=== PATIENT | female | born 1955 | race Caucasian/White ===

== ENCOUNTER → 2018-01-23 11:15 | Outpatient (CLI) | payer OTHER, SELFPAY ==
--- NOTE | 2018-01-23 | DI.MG.S_ITS ---
BILATERAL DIGITAL SCREENING MAMMOGRAM 3D/2D WITH CAD: 01/23/2018 CLINICAL: Routine screening. Comparison is made to exams dated: 01/19/2017 mammogram, 10/14/2014 mammogram, and 09/18/2012 mammogram - [facility]. The tissue of both breasts is predominantly fatty. Current study was also evaluated with a Computer Aided Detection (CAD) system. No significant masses, calcifications, or other findings are seen in either breast. There has been no significant interval change. IMPRESSION: NEGATIVE There is no mammographic evidence of malignancy. A 1 year screening mammogram is recommended. This exam was interpreted at Station ID: [id number]. NOTE: For mammograms, a report in lay terms will be sent to the patient. Approximately 15% of breast malignancies will not be visualized mammographically. In the management of a palpable breast mass, a negative mammogram must not discourage biopsy of a clinically suspicious lesion. Electronically Signed By: Mt sr/mali:01/23/2018 17:22:16 letter sent: Normal Exam ACR BI-RADS Category 1: Negative [id number]
== END ==
PROVIDERS: PCP Internal Medicine; Visit Provider Internal Medicine
DX: Z12.31 Encounter for screening mammogram for malignant neoplasm of breast (principal)
CPT/HCPCS: 77063; 77067

== ENCOUNTER 2018-01-23 12:45 | Outpatient (RCR) | payer OTHER, SELFPAY ==
--- NOTE | 2017-12-15 17:01 | PT.OIE ---
Current Diagnoses Uterovaginal prolapse, unspecified (12/15/17) Past Surgical History Status post breast reduction Status post ovarian cystectomy Status post tubal ligation Provider Visit Care Team Role Provider Type Narayan Jordan MD Primary Care Provider Physician Specialty: Internal Medicine Address: [address] [place] [address], [id number] Email: Lukasz Leon MD Attending Provider Non-Staff Specialty: DOG BATHER Address: [address] [place] [address], [id number] Email: Physical Therapy Initial Evaluation PT-OP-A Visit Information Start: 12/15/17 09:17 Freq: Status: Active Protocol: Document 12/15/17 13:45 AMB (Rec: 12/15/17 16:47 AMB [email or web address]) Out-Patient Physical Therapy Visit Information Visit Information Visit Type Initial Evaluation Visit Start Time 13:45 Visit Stop Time 14:45 Total Visit Minutes 60 Visit Number 1 Evaluation Information Evaluation Date 12/15/17 PT-OP-B Current Condition Start: 12/15/17 09:17 Freq: Status: Active Protocol: Document 12/15/17 13:45 AMB (Rec: 12/15/17 14:14 AMB [id number]) Current Condition History of Current Condition Onset Date 2 years ago Current Complaints Feeling of falling out increases with standing, lifting, in afternoon History of Current Condition Tubal ligation and endometriosis history. RA. 2 vaginal deliveries, with episiotomies. First felt a bulge in 2016. Not currently sexually active. No bleeding or infection noted. Has not tried a pessary, but uncomfortable with the whole idea of one. Prior Functional Status Baseline Function- ADL's Independent Baseline Function- Mobility Independent Baseline Function- Other Feeling of falling out, worse with activity, can get it back in by lying down. Current Functional Impairments (Reported) Functional Limitations- Other Pt with a feeling of heaviness with lifting and walking. Personal Factors Other Personal Factors That May Effect lives on [place] Therapy/Recovery PT-OP-C Subjective Start: 12/15/17 09:17 Freq: Status: Active Protocol: Document 12/15/17 13:45 AMB (Rec: 12/15/17 16:47 AMB [email or web address]) OP-PT Subjective Patient Comments Patient Comments Pt has been noticing prolapse for 2 years, feels uncomfortable, would like to avoid surgery if possible, but also willing to get surgery if she absolutely needs it. Patient Questionnaires Pelvic Pain and Urgency/Frequency Patient Symptom Scale Pelvic Pain Score 7 PT-OP-I Pelvic Floor Start: 12/15/17 09:17 Freq: Status: Active Protocol: Document 12/15/17 13:45 AMB (Rec: 12/15/17 16:41 AMB [email or web address]) Pelvic Floor Assessment Urine Urinary Symptoms Prolapse Falling Out Feeling/Heavy Other Leakage Causes 1 leak per month, not her main concern Bowel Other Bowel Symptoms 1-2 bowel movements per day denies pushing or bearing down . Does feel like needing to have a bowel movement increases the prolapsed feeling. Prolapse Uterine Prolapse Grade 2 Prolapse Comments Visible anterior wall descent baseline, increases with bearing down. Contraction Ability Voluntary Contraction Moderate Voluntary Relaxation Moderate Muscle Endurance (Seconds) 7 Number of Quick Contractions In 10 4 Seconds Comments Pelvic Floor Comments Overall 2/5 strength PT-OP-Q Treatments Start: 12/15/17 09:17 Freq: Status: Active Protocol: Document 12/15/17 13:45 AMB (Rec: 12/15/17 16:50 AMB [email or web address]) Neuro Re-Education Treatment Other Activities 2 Details long holds Reps/Duration 5 sec x5 Comments education in how to make exercise easier or harder with gravity, gravity assisted exercise 1 Details quick flicks Reps/Duration 10 PT-OP-T Assessment and Plan Start: 12/15/17 09:17 Freq: Status: Active Protocol: Document 12/15/17 13:45 AMB (Rec: 12/15/17 17:01 AMB [email or web address]) Physical Therapy Assessment Rehab Potential Rehabilitation Potential Good Evaluation Complexity Number of Personal Factors/Comorbidities 1-2 Number of Body Systems Impaired 1-2 Clinical Presentation at Evaluation Stable Impairments Impairments Strength Goals 2 Impairment Endurance Short Term Goal (STG) The patient will walk for 30 minutes without an increased feeling of falling out. STG Duration 5 weeks 1 Impairment Weakness Short Term Goal (STG) The patient will hold a pelvic floor contraction for 10 seconds in standing. STG Duration 5 weeks [employer] Farmworker Goal (LTG) The patient will contract her pelvic floor so that she does not feel her prolapse when lifting a bag of groceries from the floor to countertop height. LTG Duration 10 weeks Assessment Summary Assessment The patient presents with prolapse that is uncomfortable to her and limits her ability to be as active as she would like. She limits her walking and lifting, and has changed her diet to avoid large bowel movements which put pressure on her prolapse. She had 2/5 strength with good squeeze but needs to improver the lift of her levator. She will benefit from PT to improve her ability to use her pelvic floor muscles functionally to help brace her prolapse. Physical Therapy Plan Frequency and Duration Frequency of Treatment Every Other Week Duration of Treatment 10 weeks Plan of Care Start Date 12/15/17 Plan of Care End Date 02/23/18 Therapeutic Interventions Therapeutic Interventions Home Exercise Program Manual Therapy Neuromuscular Re-education Self-Care/Home Management Therapeutic Activities Therapeutic Exercises Modalities Biofeedback Electric Stimulation Next Visit Focus/Plan Next Note Type Treatment Note
--- NOTE | 2017-12-15 17:02 | PT.OPPOC ---
Current Diagnoses Uterovaginal prolapse, unspecified (12/15/17) Provider Visit Care Team Role Provider Type Narayan Jordan MD Primary Care Provider Physician Specialty: Internal Medicine Address: [address] [place] [address], [id number] Email: Lukasz Leon MD Attending Provider Non-Staff Specialty: PLANT PACKER Address: [address], [place], [address] Email: Plan Of Care PT-OP-T Assessment and Plan Start: 12/15/17 09:17 Freq: Status: Active Protocol: Document 12/15/17 13:45 AMB (Rec: 12/15/17 17:01 AMB [email or web address]) Physical Therapy Assessment Rehab Potential Rehabilitation Potential Good Evaluation Complexity Number of Personal Factors/Comorbidities 1-2 Number of Body Systems Impaired 1-2 Clinical Presentation at Evaluation Stable Impairments Impairments Strength Goals 2 Impairment Endurance Short Term Goal (STG) The patient will walk for 30 minutes without an increased feeling of falling out. STG Duration 5 weeks 1 Impairment Weakness Short Term Goal (STG) The patient will hold a pelvic floor contraction for 10 seconds in standing. STG Duration 5 weeks Skilled Nursing Goal (LTG) The patient will contract her pelvic floor so that she does not feel her prolapse when lifting a bag of groceries from the floor to countertop height. LTG Duration 10 weeks Assessment Summary Assessment The patient presents with prolapse that is uncomfortable to her and limits her ability to be as active as she would like. She limits her walking and lifting, and has changed her diet to avoid large bowel movements which put pressure on her prolapse. She had 2/5 strength with good squeeze but needs to improver the lift of her levator. She will benefit from PT to improve her ability to use her pelvic floor muscles functionally to help brace her prolapse. Physical Therapy Plan Frequency and Duration Frequency of Treatment Every Other Week Duration of Treatment 10 weeks Plan of Care Start Date 12/15/17 Plan of Care End Date 02/23/18 Therapeutic Interventions Therapeutic Interventions Home Exercise Program Manual Therapy Neuromuscular Re-education Self-Care/Home Management Therapeutic Activities Therapeutic Exercises Modalities Biofeedback Electric Stimulation Next Visit Focus/Plan Next Note Type Treatment Note Plan of Care Dates Plan of Care Start Date 12/15/17 Plan of Care End Date 02/23/18 Please Sign and Return: I have reviewed this Plan of Care and certify that the skilled therapy services above are required to meet the patient?s needs. Physician Signature Date Printed Name and Credentials Clinical Instructor Signature Printed Name and Credentials
--- NOTE | 2018-01-23 16:20 | PT.OTN ---
Current Diagnoses Uterovaginal prolapse, unspecified (01/23/18) Physical Therapy Treatment Note PT-OP-A Visit Information Start: 12/15/17 09:17 Freq: Status: Active Protocol: Document 01/23/18 12:45 AMB (Rec: 01/23/18 12:58 AMB [id number]) Out-Patient Physical Therapy Visit Information Visit Information Visit Type Treatment Note Visit Start Time 12:45 Visit Stop Time 13:30 Total Visit Minutes 45 Visit Number 2 PT-OP-B Current Condition Start: 12/15/17 09:17 Freq: Status: Active Protocol: Document 12/15/17 13:45 AMB (Rec: 12/15/17 14:14 AMB [id number]) Current Condition History of Current Condition Onset Date 2 years ago Current Complaints Feeling of falling out increases with standing, lifting, in afternoon History of Current Condition Tubal ligation and endometriosis history. RA. 2 vaginal deliveries, with episiotomies. First felt a bulge in 2015. Not currently sexually active. No bleeding or infection noted. Has not tried a pessary, but uncomfortable with the whole idea of one. Prior Functional Status Baseline Function- ADL's Independent Baseline Function- Mobility Independent Baseline Function- Other Feeling of falling out, worse with activity, can get it back in by lying down. Current Functional Impairments (Reported) Functional Limitations- Other Pt with a feeling of heaviness with lifting and walking. Personal Factors Other Personal Factors That May Effect lives on [facility] Therapy/Recovery PT-OP-C Subjective Start: 12/15/17 09:17 Freq: Status: Active Protocol: Document 01/23/18 12:45 AMB (Rec: 01/23/18 16:18 AMB [email or web address]) OP-PT Subjective Patient Comments Patient Comments The patient reports she is doing her exercises. She is trying to lift her pelvic floor with functional movements (sit to stand) but that is hard. She is able to get the prolapse back in by sitting or lying down, but when she is tired her symptoms are worse. PT-OP-I Pelvic Floor Start: 12/15/17 09:17 Freq: Status: Active Protocol: Document 12/15/17 13:45 AMB (Rec: 12/15/17 16:41 AMB [email or web address]) Pelvic Floor Assessment Urine Urinary Symptoms Prolapse Falling Out Feeling/Heavy Other Leakage Causes 1 leak per month, not her main concern Bowel Other Bowel Symptoms 1-2 bowel movements per day denies pushing or bearing down . Does feel like needing to have a bowel movement increases the prolapsed feeling. Prolapse Uterine Prolapse Grade 2 Prolapse Comments Visible anterior wall descent baseline, increases with bearing down. Contraction Ability Voluntary Contraction Moderate Voluntary Relaxation Moderate Muscle Endurance (Seconds) 7 Number of Quick Contractions In 10 4 Seconds Comments Pelvic Floor Comments Overall 2/5 strength PT-OP-J Posture/Palpation/Skin Start: 12/15/17 09:17 Freq: Status: Active Protocol: Document 01/23/18 12:45 AMB (Rec: 01/23/18 15:43 AMB [email or web address]) Palpation Assessment Location One Palpation Location Abdomen Palpation Details Scar present at distal umbilicus and seperate scar superior to pubis. Both very sensitive with adhesions even though they have been present for decades. Pt feels queezy with with palpation of abdomen. PT-OP-Q Treatments Start: 12/15/17 09:17 Freq: Status: Active Protocol: Document 01/23/18 12:45 AMB (Rec: 01/23/18 16:18 AMB [email or web address]) Therapeutic Exercises Supine Exercises 2 Supine Exercise Name pelvic floor long holds Comments 5-10 seconds 1 Supine Exercise Name pelvic floor quick flicks Comments hooklying Manual Therapy Treatment Soft Tissue Mobilization 1 Body Location Abomen Mobilization Type Cross-Friction Myofascial Release Intensity/Depth Moderate Body Position Supine Comments Scar massage, instructed pt in as well as desensitization training, given her emotional response to scar work. PT-OP-T Assessment and Plan Start: 12/15/17 09:17 Freq: Status: Active Protocol: Document 01/23/18 12:45 AMB (Rec: 01/23/18 16:18 AMB [email or web address]) Physical Therapy Assessment Assessment Summary Assessment Tried to use biofeedback, but software was not working. Patient was very sensitive over scar tissue and advised her in desensititation, the role of the abdomen in her treatment. The patient was asked to come in to PT next month, but due to living on the [facility] is hesitant to come in frequently. She may be interested in a hysterectomy, but needs to talk to her doctor. Physical Therapy Plan Next Visit Focus/Plan Next Note Type Treatment Note Next Visit Plan Trial biofeedback, reassess abdominal adhesions, progress as able roll ins/outs.
--- NOTE | 2018-03-30 13:48 | PT.OPDS ---
Current Diagnoses Uterovaginal prolapse, unspecified (01/23/18) Provider Visit Care Team Role Provider Type Narayan Jordan MD Primary Care Provider Physician Specialty: Internal Medicine Address: [address] [place] [address], [address] Email: Lukasz Leon MD Attending Provider Non-Staff Specialty: VALVE LAPPER Address: [address] [facility], [place], [address] Email: Visit Number Visit Number 2 Discharge Summary PT-OP-B Current Condition Start: 12/15/17 09:17 Freq: Status: Active Protocol: Document 12/15/17 13:45 AMB (Rec: 12/15/17 14:14 AMB [id number]) Current Condition History of Current Condition Onset Date 2 years ago Current Complaints Feeling of falling out increases with standing, lifting, in afternoon History of Current Condition Tubal ligation and endometriosis history. RA. 2 vaginal deliveries, with episiotomies. First felt a bulge in 2016. Not currently sexually active. No bleeding or infection noted. Has not tried a pessary, but uncomfortable with the whole idea of one. Prior Functional Status Baseline Function- ADL's Independent Baseline Function- Mobility Independent Baseline Function- Other Feeling of falling out, worse with activity, can get it back in by lying down. Current Functional Impairments (Reported) Functional Limitations- Other Pt with a feeling of heaviness with lifting and walking. Personal Factors Other Personal Factors That May Effect lives on [place] Therapy/Recovery PT-OP-C Subjective Start: 12/15/17 09:17 Freq: Status: Active Protocol: Document 01/23/18 12:45 AMB (Rec: 01/23/18 16:18 AMB [email or web address]) OP-PT Subjective Patient Comments Patient Comments The patient reports she is doing her exercises. She is trying to lift her pelvic floor with functional movements (sit to stand) but that is hard. She is able to get the prolapse back in by sitting or lying down, but when she is tired her symptoms are worse. PT-OP-I Pelvic Floor Start: 12/15/17 09:17 Freq: Status: Active Protocol: Document 12/15/17 13:45 AMB (Rec: 12/15/17 16:41 AMB [email or web address]) Pelvic Floor Assessment Urine Urinary Symptoms Prolapse Falling Out Feeling/Heavy Other Leakage Causes 1 leak per month, not her main concern Bowel Other Bowel Symptoms 1-2 bowel movements per day denies pushing or bearing down . Does feel like needing to have a bowel movement increases the prolapsed feeling. Prolapse Uterine Prolapse Grade 2 Prolapse Comments Visible anterior wall descent baseline, increases with bearing down. Contraction Ability Voluntary Contraction Moderate Voluntary Relaxation Moderate Muscle Endurance (Seconds) 7 Number of Quick Contractions In 10 4 Seconds Comments Pelvic Floor Comments Overall 2/5 strength PT-OP-J Posture/Palpation/Skin Start: 12/15/17 09:17 Freq: Status: Active Protocol: Document 01/23/18 12:45 AMB (Rec: 01/23/18 15:43 AMB [email or web address]) Palpation Assessment Location One Palpation Location Abdomen Palpation Details Scar present at distal umbilicus and seperate scar superior to pubis. Both very sensitive with adhesions even though they have been present for decades. Pt feels queezy with with palpation of abdomen. PT-OP-T Assessment and Plan Start: 12/15/17 09:17 Freq: Status: Active Protocol: Document 03/30/18 13:46 AMB (Rec: 03/30/18 13:48 AMB [email or web address]) Physical Therapy Plan Discharge Physical Therapy Discharge Comments The patient was seen for 2 visits of PT. She would benefit from more PT, but she lives in [facility] and she finds it difficult to travel here. Given that she was only seen for 2 visits and has not returned follow up calls to schedule, she is now discharged. She would need a new referral to continue with PT at this time.
== END 2018-04-05 15:23 ==
LOC: PHYS 12:45
PROVIDERS: PCP Internal Medicine; Visit Provider Obstetrics & Gynecology
DX: N81.4 Uterovaginal prolapse, unspecified (principal)
CPT/HCPCS: 97110; 97112; 97140; 97161

== ENCOUNTER → 2019-03-26 16:46 | Outpatient (CLI) | payer BC, SELFPAY ==
--- NOTE | 2019-03-26 16:52 | DI.MG.S_ITS ---
BILATERAL DIGITAL SCREENING MAMMOGRAM 3D/2D WITH CAD: 03/26/2019 CLINICAL: Routine screening. Comparison is made to exams dated: 01/23/2018 mammogram, 01/19/2017 mammogram, and 10/14/2014 mammogram - [facility]. There are scattered fibroglandular elements in both breasts. Current study was also evaluated with a Computer Aided Detection (CAD) system. There is an irregular asymmetry in the left breast posterior depth medial region seen on the craniocaudal view only. There is possible distortion associated with the asymmetry. No other significant masses, calcifications, or other findings are seen in either breast. IMPRESSION: INCOMPLETE: NEEDS ADDITIONAL IMAGING EVALUATION The irregular asymmetry in the left breast is indeterminate. Additional views with possible ultrasound are recommended. This exam was interpreted at Station ID: [id number]. NOTE: For mammograms, a report in lay terms will be sent to the patient. Approximately 15% of breast malignancies will not be visualized mammographically. In the management of a palpable breast mass, a negative mammogram must not discourage biopsy of a clinically suspicious lesion. Electronically Signed By: Patricio Brand M.D. ecl/:03/26/2019 17:42:08 letter sent: Additional Imaging Needed ACR BI-RADS Category 0: Incomplete 3340F
== END ==
PROVIDERS: PCP Internal Medicine; Visit Provider Internal Medicine
DX: Z12.31 Encounter for screening mammogram for malignant neoplasm of breast (principal)
CPT/HCPCS: 77063; 77067

== ENCOUNTER → 2019-04-18 12:53 | Outpatient (CLI) | payer BC, SELFPAY ==
--- NOTE | 2019-04-18 | DI.MG.S_ITS ---
UNILATERAL LEFT DIGITAL DIAGNOSTIC MAMMOGRAM 3D/2D WITH ADDITIONAL VIEWS: 04/18/2019 CLINICAL: Additional evaluation requested from prior study. Patient has a history of bilateral breast reductions. Comparison is made to exams dated: 03/26/2019 mammogram, 01/23/2018 mammogram, and 01/19/2017 mammogram - [facility]. There are scattered fibroglandular elements in left breast. Patient has a history of bilateral breast reductions. The scarring of the left breast has been labeled with linear scar markers. The previously identified irregular asymmetry in the left breast posterior depth medial region seen on the craniocaudal view only on comparison screening mammograms of 03/26/19 is less prominent on additional views. The less prominent asymmetry appears to correlate with scarring of the inferior left breast as identified by the linear scar markers. IMPRESSION: INCOMPLETE: NEEDS ADDITIONAL IMAGING EVALUATION Previously identified irregular asymmetry in the left breast posterior depth medial region seen on the craniocaudal view only on comparison screening mammograms of 03/26/19 is less prominent on additional views, and appears to correlate with inferior left breast scarring from prior breast reduction. A targeted ultrasound is recommended for further evaluation, and will be performed immediately following this exam. This exam was interpreted at Station ID: [id number]. NOTE: For mammograms, a report in lay terms will be sent to the patient. Approximately 15% of breast malignancies will not be visualized mammographically. In the management of a palpable breast mass, a negative mammogram must not discourage biopsy of a clinically suspicious lesion. Electronically Signed By: Patricio Brand M.D. ecl/:04/18/2019 14:36:06 ACR BI-RADS Category 0: Incomplete [id number]
--- NOTE | 2019-04-18 | DI.US.S_ITS ---
LIMITED ULTRASOUND OF LEFT BREAST: 04/18/2019 CLINICAL: Patient returns today to evaluate an asymmetry in the left breast. Patient has a history of bilateral breast reductions. Comparison is made to exams dated: 04/18/2019 mammogram, 03/26/2019 mammogram, 01/23/2018 mammogram, 01/19/2017 mammogram, 10/14/2014 mammogram, and 09/18/2012 mammogram - [facility]. Color flow and real-time ultrasound of the left breast inner aspect were performed. Ricks scale images of the real-time examination were reviewed. No underlying breast mass or abnormality is identified. There is no ultrasound correlate for the previously noted irregular asymmetry in the left breast posterior depth medial region seen on the craniocaudal view only on comparison screening mammograms of 03/26/19, which was less prominent and appeared to correlate with inferior breast scarring on additional diagnostic views performed immediately prior to this exam on 04/18/19. IMPRESSION: PROBABLY BENIGN No ultrasound correlate for the previously noted irregular asymmetry in the left breast posterior depth medial region seen on comparison screening and diagnostic mammography, which appeared to correlate with inferior left breast scarring from prior breast reduction. A follow-up mammogram and possible ultrasound in 6 months is recommended to demonstrate stability. The patient is advised to monitor her breasts and to return sooner for re-evaluation should she feel anything grow or change. This exam was interpreted at Station ID: [id number]. Electronically Signed By: Patricio Brand M.D. ecl/:04/18/2019 14:42:15 letter sent: Followup Recommended Ultrasound BI-RADS: 3 Probably benign
== END ==
PROVIDERS: PCP Internal Medicine; Visit Provider Internal Medicine
DX: R92.8 Other abnormal and inconclusive findings on diagnostic imaging of breast (principal); N64.89 Other specified disorders of breast
CPT/HCPCS: 76642; 77065; G0279

== ENCOUNTER → 2019-07-15 10:54 | Outpatient (CLI) | payer BC, SELFPAY ==
--- NOTE | 2019-07-15 11:35 | DI.CT.S_ITS ---
PROCEDURE: CT ABDOMEN PELVIS WO/W CON INDICATIONS: Other microscopic hematuria TECHNIQUE: Optional 5 mm thick noncontrast images acquired from the diaphragm to the symphysis pubis. After the administration of intravenous contrast, 5 mm thick images acquired from the diaphragm to the symphysis pubis after a 10-minute delay. 2 mm thick coronal and sagittal reformats were then performed of the kidneys and ureters. For radiation dose reduction, the following was used: automated exposure control, adjustment of mA and/or kV according to patient size. COMPARISON: [facility], CT, CT ABDOMEN PELVIS WITH CONTRAST, 06/03/2019, 12:36. FINDINGS: Image quality: Excellent. Lung bases: Lung bases are clear. Heart size is normal. Small hiatal hernia. Urinary system: There is a 5 mm stone in the inferior pole the right kidney. No hydronephrosis. Both kidneys are normal in size. Small renal cortical nodules bilaterally up most likely cysts. There is symmetric bilateral renal enhancement. Renal calyces appear normal in morphology when filled with contrast. Opacified portions of both ureters demonstrate normal caliber. There is mild irregularity in the anterior aspect of the bladder base. No calcified bladder stones. Other solid organs: There is hepatic steatosis. Liver is normal in size and enhancement. Gallbladder is normal. Biliary system is non dilated. Pancreas enhances normally. Spleen is normal in size and enhancement. No adrenal nodules. Peritoneum and bowel: There numerous colonic diverticula. No CT findings to suggest acute diverticulitis. Normal appendix. Bowel loops demonstrate normal wall thickness and caliber. No free fluid or air. Nodes and vessels: No retroperitoneal or mesenteric adenopathy by size criteria. Aorta and inferior vena cava are normal in size. Abdominal wall: No ventral hernias. Pelvis: No pathologic free pelvic fluid. No inguinal hernias or adenopathy. Bones: There are tiny foci subtle lucencies in the sacrum and iliac bones. A small sclerotic focus in the left iliac bone is probably a widened. No vertebral body compression fractures. IMPRESSION: 1. There is a 5 mm stone in the inferior pole the right kidney. No hydronephrosis. 2. Mild irregularity in the anterior aspect of the bladder base. In this patient with microhematuria, cystoscopy is suggested for followup. 3. Diverticulosis without diverticulitis. 4. Hepatic steatosis. 5. Small hiatal hernia. 6. Tiny foci of subtle lucencies in the sacrum and iliac bones. If there is clinical concern for metastatic disease, MRI with and without contrast is suggested for followup. Dictated by: Lisa Jean M.D. on 07/15/2019 at 16:39 Approved by: Lisa Jean M.D. on 07/15/2019 at 17:00
== END ==
PROVIDERS: PCP Internal Medicine; Visit Provider Physician Assistant
DX: R31.29 Other microscopic hematuria (principal); N20.0 Calculus of kidney; K44.9 Diaphragmatic hernia without obstruction or gangrene; K76.0 Fatty (change of) liver, not elsewhere classified; K57.90 Diverticulosis of intestine, part unspecified, without perforation or abscess without bleeding
CPT/HCPCS: 74178; Q9967

== ENCOUNTER → 2022-04-06 16:17 | Outpatient (CLI) | payer MEDICARE, BC, SELFPAY | PROVIDERS: PCP Internal Medicine; Visit Provider Physician Assistant | DX: N20.0 Calculus of kidney (principal) | CPT/HCPCS: 87086 ==

== ENCOUNTER → 2022-07-27 14:06 | Outpatient (CLI) | payer MEDICARE, BC, SELFPAY ==
[2022-07-27 20:22] LABS: Alanine Aminotransferase 27 IU/L (<35); Albumin Globulin Ratio 1.2 (1.0-2.8); Alkaline Phosphatase 103 U/L (38-126); Aspartate Aminotransferase 32 IU/L (14-36); BUN Creatinine Ratio 22.8 (6-22); Bilirubin Total 0.7 mg/dL (0.2-1.3); Blood Urea Nitrogen 21 mg/dL (7-17); Calcium 9.3 mg/dL (8.4-10.2); Carbon Dioxide 33 mmol/L (22-32); Chloride 99 mmol/L (98-107); Estimated Glomerular Filt Rate > 60 mL/min (>60); Globulin 3.3 g/dL (1.7-4.1); Glucose 84 mg/dL (80-110); HEMOLYSIS < 15 (0-50); Sodium 139 mmol/L (137-145); Total Protein 7.3 g/dL (6.3-8.2)
== END ==
PROVIDERS: PCP Physician Assistant; Visit Provider Physician Assistant
DX: N20.0 Calculus of kidney (principal)
CPT/HCPCS: 80053

== ENCOUNTER → 2022-09-26 11:32 | Outpatient (CLI) | payer MEDICARE, BC, SELFPAY ==
--- NOTE | 2022-09-26 11:33 | DI.US.S_ITS ---
PROCEDURE: US ABDOMEN LIMITED INDICATIONS: MASS RIGHT UPPER BACK JUST TO RIGHT OF SPINALCORD UPPER T TECHNIQUE: Real-time focused scanning was performed of the abdomen, with image documentation. COMPARISON: None. FINDINGS: Targeted ultrasound of the right upper back demonstrates a partially capsulated, hyperechoic, fat containing mass measuring 4.2 x 0.8 x 3.5 cm. Findings consistent with a lipoma. IMPRESSION: Previously described subcutaneous mass corresponds to a benign lipoma. Dictated by: Geoffrey Moulton M.D. on 09/26/2022 at 13:50 Approved by: Geoffrey Moulton M.D. on 09/26/2022 at 13:51
--- NOTE | 2022-09-26 11:33 | DI.US.S_ITS ---
PROCEDURE: US EXTREMITY NONVASC LOWER RT INDICATIONS: MASS RIGHT UPPER THIGH TECHNIQUE: Real-time scanning was performed of the right upper thigh , with image documentation. COMPARISON: None. FINDINGS: Multiple grayscale color Doppler images of the patient directed area of palpable concern involving the proximal/upper right thigh were acquired. There is a superficial, subcutaneous oval mass which is wider than tall in orientation measuring approximately 1.6 x 0.4 x 1.6 cm in size. No internal vascularity. No abnormal fluid collection seen. No evidence to suggest invasion into the underlying musculature or fascia. IMPRESSION: Oval, hypoechoic soft tissue mass in the superficial, subcutaneous soft tissues of the upper right thigh. Findings are nonspecific and may represent both benign and possible malignant etiologies. Although findings may represent a lipoma, recommend continued clinical surveillance and if indicated, soft tissue MRI without and with contrast can be considered for further characterization. Alternatively, excisional biopsy can also be considered. Dictated by: Octaviano Coombs M.D. on 09/26/2022 at 15:01 Approved by: Octaviano Coombs M.D. on 09/26/2022 at 15:04
== END ==
PROVIDERS: PCP Family Medicine; Referring Provider Family Medicine; Visit Provider Family Medicine
DX: R22.41 Localized swelling, mass and lump, right lower limb (principal); R22.2 Localized swelling, mass and lump, trunk
CPT/HCPCS: 76705; 76882

== ENCOUNTER → 2023-02-08 09:59 | Outpatient (CLI) | payer MEDICARE, BC, SELFPAY ==
[2023-02-08 19:36] LABS: Alanine Aminotransferase 22 IU/L (<35); Albumin 3.8 g/dL (3.5-5.0); Albumin Globulin Ratio 1.2 (1.0-2.8); Alkaline Phosphatase 101 U/L (38-126); Aspartate Aminotransferase 30 IU/L (14-36); BUN Creatinine Ratio 17.9 (6-22); Bilirubin Total 0.7 mg/dL (0.2-1.3); Blood Urea Nitrogen 15 mg/dL (7-17); Calcium 9.2 mg/dL (8.4-10.2); Carbon Dioxide 32 mmol/L (22-32); Chloride 103 mmol/L (98-107); Cholesterol 229 mg/dL (140-199); Estimated Glomerular Filt Rate > 60 mL/min (>60); Globulin 3.3 g/dL (1.7-4.1); Glucose 75 mg/dL (80-110); HDL Cholesterol 37 mg/dL (40-60); HEMOLYSIS < 15 (0-50); LDL Cholesterol Calculated 146 mg/dL (<100); Potassium 3.7 mmol/L (3.4-5.1); Sodium 140 mmol/L (137-145); Total Protein 7.1 g/dL (6.3-8.2); Triglycerides 229 mg/dL (35-150)
[2023-02-08 21:12] LABS: Urine N gonorrhoeae NOT DETECTED
[2023-02-08 21:16] LABS: Urine Chlamydia NOT DETECTED
[2023-02-09 16:59] LABS: HIV 1 & 2 Ab/Ag 4th Gen Combo NEGATIVE (NEGATIVE)
[2023-02-09 17:08] LABS: Hep C Virus Ab w/Reflex Quant NEGATIVE s/c (NEGATIVE)
[2023-02-10 09:09] LABS: RPR Screen Non Reactive (Non Reactive)
== END ==
PROVIDERS: PCP Family Medicine; Visit Provider Family Medicine
DX: Z00.00 Encounter for general adult medical examination without abnormal findings (principal); E66.3 Overweight; N39.0 Urinary tract infection, site not specified; Z20.2 Contact with and (suspected) exposure to infections with a predominantly sexual mode of transmission
CPT/HCPCS: 80053; 80061; 86592; 86803; 87389; 87491; 87591

== ENCOUNTER → 2023-05-08 12:03 | Outpatient (CLI) | payer MEDICARE, BC, SELFPAY ==
[2023-05-08 19:32] LABS: Alanine Aminotransferase 23 IU/L (<35); Albumin 3.9 g/dL (3.5-5.0); Albumin Globulin Ratio 1.3 (1.0-2.8); Alkaline Phosphatase 94 U/L (38-126); Aspartate Aminotransferase 31 IU/L (14-36); BUN Creatinine Ratio 20.8 (6-22); Bilirubin Total 0.8 mg/dL (0.2-1.3); Blood Urea Nitrogen 16 mg/dL (7-17); Calcium 9.8 mg/dL (8.4-10.2); Carbon Dioxide 31 mmol/L (22-32); Chloride 103 mmol/L (98-107); Estimated Glomerular Filt Rate > 60 mL/min (>60); Glucose 112 mg/dL (80-110); HEMOLYSIS < 15 (0-50); Potassium 3.4 mmol/L (3.4-5.1); Sodium 141 mmol/L (137-145); Total Protein 6.9 g/dL (6.3-8.2)
[2023-05-08 19:43] LABS: Vitamin D 25 Hydroxy (D3) 60.1 ng/mL (30.0-100.0)
[2023-05-11 14:16] LABS: Calcium 9.6 mg/dL (8.7-10.3); Parathyroid Hormone, Intact 31 pg/mL (15-65)
== END ==
PROVIDERS: PCP Family Medicine; Visit Provider Family Medicine
DX: E87.6 Hypokalemia (principal); M81.0 Age-related osteoporosis without current pathological fracture; S42.92XA Fracture of left shoulder girdle, part unspecified, initial encounter for closed fracture
CPT/HCPCS: 80053; 82306; 82310; 83735; 83970

== ENCOUNTER → 2023-05-31 12:39 | Outpatient (CLI) | payer MEDICARE, BC, SELFPAY ==
--- NOTE | 2023-05-31 12:41 | DI.RAD.S_ITS ---
Bone Density Report Name: MILTON RUELAS Age: 68 Sex: Female Ethnicity: Date of : 1955 Indication: osteopenia; Referring Provider: SARITA VALDEZ Study: Bone densitometry was performed. Exam Date: May 31, 2023 Accession number: [id number] Bone Density: Region BMD T-score Z-score Classification AP Spine(L1-L4) 0.765 -2.6 -0.7 Osteoporosis Femoral Neck (Left) 0.566 -2.6 -1.1 Osteoporosis Total Hip (Left) 0.728 -1.8 -0.5 Osteopenia Femoral Neck (Right) 0.560 -2.6 -1.1 Osteoporosis Total Hip (Right) 0.722 -1.8 -0.5 Osteopenia Total Hip Mean 0.725 -1.8 -0.5 Osteopenia World Health Organization criteria for BMD impression classify patients as: Normal (T-score at or above -1.0), Osteopenia (T-score between -1.0 and -2.5), or Osteoporosis (T-score at or below -2.5). 10-year Fracture Risk: FRAX not reported because: Some T-score for Spine Total or Hip Total or Femoral Neck at or below -2.5 Previous Exams: -- Region Exam Age BMD T-score BMD Change BMD Change Date g/cm2 vs Baseline vs Previous -- AP Spine (L1-L4) 05/31/2023 68 0.765 -2.6 -0.167 (-17.9%)# -0.060 (-7.3%)# 07/27/2015 60 0.825 -2.0 -0.107 (-11.4%)* -0.068 (-7.6%)* 02/04/2013 57 0.893 -1.4 -0.038 (-4.1%)* -0.038 (-4.1%)* 04/10/2009 53 0.932 -1.0 Total Hip(Left) 05/31/2023 68 0.728 -1.8 -0.098 (-11.9%)# -0.103 (-12.4%)# 07/27/2015 60 0.831 -0.9 0.005 (0.6%) -0.017 (-2.0%) 02/04/2013 57 0.848 -0.8 0.022 (2.7%) 0.022 (2.7%) 04/10/2009 53 0.826 -1.0 Total Hip(Right) 05/31/2023 68 0.722 -1.8 -0.146 (-16.9%)# -0.086 (-10.7%)# 07/27/2015 60 0.808 -1.1 -0.060 (-6.9%)* -0.006 (-0.7%) 02/04/2013 57 0.814 -1.1 -0.054 (-6.3%)* -0.054 (-6.3%)* 04/10/2009 53 0.868 -0.6 -- *Denotes significance at 95% confidence level, LSC for AP Spine = 0.022 g/cm2, LSC for Total Hip = 0.027 g/cm2 # Denotes dissimilar scan types or analysis methods Impression: The patient has osteoporosis, based on the Total Spine T-score. No significant bone loss was observed. Discussion: INCREASED RISK OF FRACTURE. BONE DENSITY IS UNDESIRABLY LOW AT ONE OR MORE SKELETAL SITES, CONSISTENT WITH POSTMENOPAUSAL OSTEOPOROSIS. This patient's lowest T-score meets the World Health Organization's (WHO) criteria for osteoporosis at one or more sites (T-score -2.5 or below). In untreated patients, the risk of osteoporotic fracture increases approximately two-fold for each 1.0 SD decrease in T-score. Low bone density is not the only risk factor for fracture; also consider factors such as patient's age, frailty or poor health, risk of falling, risk of injury, previous osteoporotic fracture, family history of osteoporosis, cigarette smoking, low body weight, etc. Not everyone with low bone mineral density has osteoporosis; osteomalacia and other metabolic bone disorders should also be considered. Patients who have osteoporosis should be evaluated for specific diseases and conditions (secondary causes) that may cause or contribute to bone loss. The [place] [employer] (AACE) and National Osteoporosis Foundation (NOF) recommend pharmacologic intervention for all postmenopausal women whose T-score is in this range. The patient should follow a healthful lifestyle (good nutrition with adequate calcium and vitamin D, and appropriate weight-bearing exercise). Follow-Up: Consider a repeat BMD and Vertebral Fracture Assessment (VFA) exam in 2 years or sooner if medically necessary, to reassess this patient's status. Reported by: MYRNA BERGERON M.D. on 05/31/2023 1:03:00 PM.
== END ==
PROVIDERS: PCP Family Medicine; Referring Provider Family Medicine; Visit Provider Family Medicine
DX: M81.0 Age-related osteoporosis without current pathological fracture (principal); S42.92XA Fracture of left shoulder girdle, part unspecified, initial encounter for closed fracture; Z78.0 Asymptomatic menopausal state; Z90.710 Acquired absence of both cervix and uterus
CPT/HCPCS: 77080

== ENCOUNTER → 2024-10-14 09:34 | Outpatient (CLI) | payer MEDICARE, BC, SELFPAY ==
[2024-10-14 19:04] LABS: Alanine Aminotransferase 30 IU/L (<35); Albumin 4.3 g/dL (3.5-5.0); Albumin Globulin Ratio 1.4 (1.0-2.8); Alkaline Phosphatase 88 U/L (38-126); Aspartate Aminotransferase 36 IU/L (14-36); BUN Creatinine Ratio 20.7 (6-22); Blood Urea Nitrogen 19 mg/dL (7-17); Calcium 9.3 mg/dL (8.4-10.2); Carbon Dioxide 32 mmol/L (22-32); Chloride 104 mmol/L (98-107); Estimated Glomerular Filt Rate > 60 mL/min (>60); Globulin 3.1 g/dL (1.7-4.1); Glucose 93 mg/dL (80-110); HEMOLYSIS < 15 (0-50); Sodium 142 mmol/L (137-145); Total Protein 7.4 g/dL (6.3-8.2)
[2024-10-14 19:27] LABS: TSH w/ Reflex to FT4 2.07 uIU/mL (0.47-4.68)
== END ==
PROVIDERS: PCP Family Medicine; Referring Provider Physician Assistant Medical; Visit Provider Physician Assistant Medical
DX: I10 Essential (primary) hypertension (principal)
CPT/HCPCS: 80053; 84443

== ENCOUNTER → 2025-03-19 10:08 | Outpatient (CLI) | payer MEDICARE, BC, SELFPAY ==
[2025-03-19 19:28] LABS: Cholesterol 260 mg/dL (140-199); HDL Cholesterol 46 mg/dL (40-60); Triglycerides 151 mg/dL (35-150)
== END ==
PROVIDERS: PCP Family Medicine; Visit Provider Family Medicine
DX: I10 Essential (primary) hypertension (principal); Z13.6 Encounter for screening for cardiovascular disorders
CPT/HCPCS: 80061

== ENCOUNTER → 2025-05-19 11:09 | Outpatient (CLI) | payer MEDICARE, BC, SELFPAY | PROVIDERS: PCP Family Medicine; Visit Provider Physician Assistant | DX: R35.0 Frequency of micturition (principal) | CPT/HCPCS: 87077; 87086; 87147 ==